=== PATIENT | male | born 2000 | race American Indian/Alaskan Native ===

== ENCOUNTER 2021-04-07 11:20 | Emergency (ER) | payer OTHER ==
[2021-04-07 11:30] VITALS: BP 129/80
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
== END 2021-04-07 12:13 | disposition home or self-care (01) ==
LOC: ED 11:20
DX: M79.10 Myalgia, unspecified site (principal); M54.50 Low back pain, unspecified; V89.2XXA Person injured in unspecified motor-vehicle accident, traffic, initial encounter; Y93.89 Activity, other specified; Y92.89 Other specified places as the place of occurrence of the external cause; Y99.8 Other external cause status
CPT/HCPCS: 99282

== ENCOUNTER 2021-05-11 18:19 | Emergency (ER) | payer OTHER ==
[2021-05-12 02:02] VITALS: BP 129/75
== END 2021-05-12 02:00 ==
LOC: ED 18:19
DX: R51.9 Headache, unspecified (principal); Z53.21 Procedure and treatment not carried out due to patient leaving prior to being seen by health care provider